=== PATIENT | male | born 1955 | race African-American/Black ===

== ENCOUNTER 2017-12-22 23:37 | Emergency (ER) | payer OTHER, MEDICARE ==
[~2017-12-22] VITALS: Ht 121.9 cm; Wt 105.0 kg
[~2017-12-22 23:37] MED LIST: FURO-151; LIP40; LISI40TA4; LOV120; METO1TAB26; POTA-9; VIC; WARF5TAB76; qvar
[2017-12-23] MEDS ORDERED: MORPHINE SULFATE 4 MG/ML CPJ (NOT FOR IM USE) IV STA (00:23)
[2017-12-23] MEDS ORDERED: SODIUM CHLORIDE 0.9% 1,000 ML IV ONE (00:23)
[2017-12-23] MEDS ORDERED: ONDANSETRON HCL 4MG/2ML VIAL IV STA (00:23)
[2017-12-23] MEDS ORDERED: LIDOCAINE HCL 1% 20ML VIAL (Pyxis) INJ MC ONE (00:30)
[2017-12-23] MEDS ORDERED: BACITRACIN ZINC OINT UDPKT TOP ONE (00:30)
[2017-12-23] MEDS ORDERED: LIDOCAINE HCL/PF 1% 10 MG/ML 5ML VIAL IJ SCH (00:34)
[2017-12-23] MEDS ORDERED: VANCOMYCIN 1 G PREMIX 200 ML IV ONE ×2 (01:00→06:24)
[2017-12-23] MEDS ORDERED: SODIUM CHLORIDE 0.9% 1000ML BAG (SEPSIS BOLUS) IV ONE (01:00)
[2017-12-23] MEDS ORDERED: PIPERACILLIN/TAZ 3.375G PREMIX 50 ML IV ONE (01:00)
[2017-12-23 01:40] LABS: BASOPHILS % 0.7 % (0.0-2.0); EOSINOPHILS % 0.3 % (0.0-5.0); MEAN CORPUSCULAR HEMOGLOBIN 23.3 pg (28.0-32.0); MEAN CORPUSCULAR VOLUME 74.1 fL (80.0-94.0); MEAN PLATELET VOLUME 9.1 fl (7.4-10.4); MONOCYTES % 10.2 % (2.0-8.0); NEUTROPHILS % 80.8 % (40.0-76.0); PLATELET 473 x1000/uL (130-400); RED BLOOD CELL COUNT 2.61 mill/uL (4.7-6.1); RED CELL DISTRIBUTION WIDTH 17.4 % (11.6-14.6)
[2017-12-23 01:44] LABS: HEMATOCRIT. 19.4 % (42.0-52.0); HEMOGLOBIN. 6.1 g/dL (14.0-18.0)
[2017-12-23] MEDS ORDERED: FENTANYL CITRATE/PF 50MCG/ML 2ML VIAL IV ONE (01:45)
[2017-12-23 01:47] LABS: CHLORIDE 110 mEq/L (98-107)
[2017-12-23 01:59] LABS: PROTHROMBIN TIME 118.7 sec (9.4-11.6)
[2017-12-23 02:01] LABS: INR 11.3
[2017-12-23] MEDS ORDERED: MORPHINE SULFATE 4 MG/ML CPJ (NOT FOR IM USE) IV ONE (02:15)
[2017-12-23] MEDS ORDERED: PHYTONADIONE 10MG/ML AMP SUBCUT ONE (02:15)
[2017-12-23 03:29] LABS: CLARITY URINE CLOUDY (CLEAR); COLOR URINE DARK YELLOW (YELLOW); KETONES URINE TRACE (NEGATIVE); LEUKOCYTE ESTERASE URINE NEGATIVE (NEGATIVE); NITRITE URINE NEGATIVE (NEGATIVE); OCCULT BLOOD URINE 1+ (NEGATIVE); PROTEIN URINE 1+ (NEGATIVE); SPECIFIC GRAVITY URINE 1.025 (1.005-1.030)
[2017-12-23] MEDS ORDERED: DESMOPRESSIN ACETATE IVPB 20 MCG in SODIUM CHLORIDE 0.9% 50 ML IV SCH (05:00)
[2017-12-23] MEDS ORDERED: DESMOPRESSIN ACETATE IVPB 20 MCG in SODIUM CHLORIDE 0.9% 50 ML IV ONE (05:00)
[2017-12-23 06:47] VITALS: BP 117/66
== END 2017-12-23 07:24 | disposition short-term general hospital (02) ==
LOC: ER 23:37 → CANBEDREQ 12-23 19:14
DX: T87.89 Other complications of amputation stump (principal); T87.44 Infection of amputation stump, left lower extremity; T81.19XA Other postprocedural shock, initial encounter; T87.43 Infection of amputation stump, right lower extremity; T81.4XXA Infection following a procedure, initial encounter; B99.9 Unspecified infectious disease; J90 Pleural effusion, not elsewhere classified; J44.9 Chronic obstructive pulmonary disease, unspecified; E11.9 Type 2 diabetes mellitus without complications; I10 Essential (primary) hypertension; Z95.4 Presence of other heart-valve replacement; Z89.512 Acquired absence of left leg below knee; Z79.899 Other long term (current) drug therapy; Y83.5 Amputation of limb(s) as the cause of abnormal reaction of the patient, or of later complication, without mention of misadventure at the time of the procedure; Y92.9 Unspecified place or not applicable
CPT/HCPCS: 36415; 36430; 71045; 73552; 80053; 81003; 82962; 83605; 85025; 85610; 86850; 86900; 86901; 86920; 86927; 87040; 87076; 93005; 96365; 96367; 96372; 96375; 96376; 99291; J2270; J2405; J2543; J2597; J3010; J3370; J3430; J3490; J7030; J7050; P9016; P9017; Z7610

== ENCOUNTER 2018-06-20 11:43 | Emergency (ER) | payer OTHER, MEDICARE ==
[~2018-06-20] VITALS: Ht 152.4 cm; Wt 113.0 kg
[2018-06-20] MEDS ORDERED: DEXTROSE 50% WATER 50ML SYRINGE IV ONE (12:12)
[2018-06-20 12:44] LABS: CHLORIDE 96 mEq/L (98-107)
[2018-06-20 12:48] LABS: HEMATOCRIT. 31.8 % (42.0-52.0); HEMOGLOBIN. 9.8 g/dL (14.0-18.0); MEAN CORPUSCULAR HEMOGLOBIN 22.7 pg (28.0-32.0); MEAN CORPUSCULAR VOLUME 74.1 fL (80.0-94.0); MEAN PLATELET VOLUME 8.7 fl (7.4-10.4); PLATELET 561 x1000/uL (130-400); RED CELL DISTRIBUTION WIDTH 21.1 % (11.6-14.6)
[2018-06-20 12:52] LABS: PROTHROMBIN TIME 39.2 sec (9.1-11.1)
[2018-06-20 13:24] LABS: NUCLEATED RED BLOOD CELLS 1 /100 WBC; PLATELET ESTIMATE INCREASED
[2018-06-20] MEDS ORDERED: FUROSEMIDE 100MG/10ML VIAL IV SCH (13:45)
[2018-06-20 15:54] VITALS: BP 138/72
== END 2018-06-20 16:22 | disposition short-term general hospital (02) ==
LOC: ER 11:43 → CANBEDREQ 14:23 → ER 16:22
DX: E11.649 Type 2 diabetes mellitus with hypoglycemia without coma (principal); I11.0 Hypertensive heart disease with heart failure; I50.9 Heart failure, unspecified; I48.91 Unspecified atrial fibrillation; J44.9 Chronic obstructive pulmonary disease, unspecified; D50.9 Iron deficiency anemia, unspecified; D72.829 Elevated white blood cell count, unspecified; D47.3 Essential (hemorrhagic) thrombocythemia; I45.10 Unspecified right bundle-branch block; E86.0 Dehydration; E88.09 Other disorders of plasma-protein metabolism, not elsewhere classified; Z88.8 Allergy status to other drugs, medicaments and biological substances; Z79.01 Long term (current) use of anticoagulants; Z89.612 Acquired absence of left leg above knee; Z89.511 Acquired absence of right leg below knee; Z79.4 Long term (current) use of insulin
CPT/HCPCS: 36415; 71045; 80053; 82962; 83605; 83880; 84145; 84484; 85025; 85610; 87040; 93005; 96374; 99285; J1940